=== PATIENT | female | born 2005 | race Caucasian/White ===

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

== ENCOUNTER 2024-09-09 11:38 | Emergency (ER) | payer MEDICAID ==
[~2024-09-09] VITALS: Wt 64.9 kg
[~2024-09-09 11:38] MED LIST changes: +CEPHALEXIN500 M1 PO
[2024-09-09] MEDS ORDERED: AMOXICILLIN 50500 MG PO (12:17)
[2024-09-09] MEDS ORDERED: AZITHROMYCIN 250MGPK PO (12:17)
[2024-09-09 12:52] LABS: URINE WBC 0 /hpf (0-3)
[2024-09-09 12:57] LABS: PH-URINE 5.5 (5.0 - 8.0); URINE APPEARANCE CLEAR (CLEAR); URINE BILIRUBIN NEGATIVE (NEGATIVE); URINE COLOR YELLOW (YELLOW); URINE GLUCOSE NEGATIVE (NEGATIVE); URINE KETONE NEGATIVE (NEGATIVE); URINE PROTEIN(semi-quant) NEGATIVE (NEGATIVE)
[2024-09-09 12:58] LABS: URINE BLOOD NEGATIVE (NEGATIVE); URINE LEUKOCYTE ESTERASE NEGATIVE (NEGATIVE); URINE NITRATE NEGATIVE (NEGATIVE)
[2024-09-09] MEDS ORDERED: NS 1,000 ML IV ONE (13:00)
[2024-09-09] MEDS ORDERED: Mag/Al Hydrox/Simeth Susp 30 ML CUP PO ONE (13:00)
[2024-09-09 13:02] LABS: URINE MUCUS PRESENT (NOT PRESENT)
[2024-09-09 13:56] LABS: ALBUMIN 4.8 g/dL (3.5-5.0); SODIUM 139 mmol/L (136-145)
[2024-09-09 13:57] LABS: CALCIUM 9.8 mg/dL (8.3-10.5)
[2024-09-09 13:59] LABS: GLUCOSE 77 mg/dL (65-105); TOTAL PROTEIN 8.4 g/dL (6.4-8.3)
[2024-09-09 14:00] LABS: CARBON DIOXIDE 20 mmol/L (22-29); TOTAL BILIRUBIN 0.4 mg/dL (0.2-1.2)
[2024-09-09 14:03] LABS: BASO # 0.03 K/mm3 (0.02-0.10); EOS # 0.09 K/mm3 (0.04-0.40); HEMOGLOBIN 13.8 g/dL (12.5-16.0); LYMPH# 1.86 K/mm3 (1.50-4.00); MEAN CELL VOLUME 87 fl (78-100); MEAN CORPUSCULAR HEMOGLOBIN 29 pg (27-31); MEAN CORPUSCULAR HGB CONC 33 g/dL (33-37); MEAN PLATELET VOLUME 11.7 fl (7.4-10.4); MONO # 0.52 K/mm3 (0.20-0.80); NEU # 6.49 K/mm3 (1.40-6.50); PLATELET COUNT 277 K/mm3 (130-400); RED BLOOD COUNT 4.84 M/mm3 (4.10-5.30); RED CELL DISTRIBUTION WIDTH 12.8 % (11.5-14.5)
[2024-09-09 14:04] LABS: AST-SGOT 20 U/L (5-34)
[2024-09-09 14:05] LABS: ALT/SGPT 16 U/L (0-55)
[2024-09-09 14:06] LABS: LIPASE 25 U/L (8-78)
[2024-09-09 14:14] LABS: TROPONIN-I < 0.030 ng/mL (0.00-0.033)
[2024-09-09] MEDS ORDERED: ZOFRAN ODT4 MG PO (14:32)
[2024-09-09] MEDS ORDERED: PEPCID COMPLET1 EACH PO (14:32)
[2024-09-09] MEDS ORDERED: LIDOCAINE HCL100 M2 MM (14:32)
[2024-09-09 14:46] VITALS: BP 103/65
== END 2024-09-09 14:46 | disposition home or self-care (01) ==
LOC: ED 11:38
PROVIDERS: Family Medicine
DX: K27.9 Peptic ulcer, site unspecified, unspecified as acute or chronic, without hemorrhage or perforation (principal)
CPT/HCPCS: J7030